=== PATIENT | female | born 1985 | race Caucasian/White ===

== ENCOUNTER 2017-08-22 14:22 | Emergency (ER) | payer MEDICARE ==
[~2017-08-22] VITALS: Ht 160 cm; Wt 80.3 kg
[2017-08-22 16:39] LABS: HEMATOCRIT 33.6 % (36.0-46.0); MCH 29.7 PG (29.0-34.0); MCV 89.8 FL (83-99); MEAN PLAT.VOLUME 9.3 uM^3 (9.5-12.4); PLATELET COUNT 295 K/uL (156-360); RBC DIS.WIDTH-CV 13.1 % (11.8-14.6); RBC DIS.WIDTH-SD 42.7 % (39-53); RED BLOOD COUNT 3.74 M/uL (3.80-5.20); WHITE BLOOD COUNT 8.7 K/uL (4.1-10.2)
[2017-08-22 16:49] LABS: CHLORIDE 105 mEq/L (99-109); POTASSIUM 3.5 mEq/L (3.7-5.4); SODIUM 139 mEq/L (136-147)
[2017-08-22 16:51] LABS: GLUCOSE 82 mg/dL (70-99)
[2017-08-22 16:53] LABS: ANION GAP 10 MEQ/L (2-14)
[2017-08-22 16:55] LABS: GFR ESTIMATE (CALCULATED) > 59 mL/min/
[2017-08-22 16:56] LABS: UREA NITROGEN (BUN) 9 mg/dL (9-23)
[2017-08-22 17:00] LABS: TROP-I INTERPRETATION NEGATIVE; TROPONIN-I < 0.01 ng/mL (0.0-0.30)
[2017-08-22 18:01] LABS: TROP-I INTERPRETATION NEGATIVE; TROPONIN-I < 0.01 ng/mL (0.0-0.30)
[2017-08-22 18:28] VITALS: BP 116/78
== END 2017-08-22 19:02 | disposition home or self-care (01) ==
LOC: EME 14:22
PROVIDERS: Emergency Medicine
DX: O26.893 Other specified pregnancy related conditions, third trimester (principal); R55 Syncope and collapse; R00.2 Palpitations; Z3A.31 31 weeks gestation of pregnancy
CPT/HCPCS: 71020; 80048; 83880; 84484; 85027; 93005; 99281; 99284; J7030

== ENCOUNTER 2017-11-29 12:15 | Outpatient (CLI) | payer MEDICARE ==
[~2017-11-29] VITALS: Ht 160 cm; Wt 96.8 kg
[2017-11-29] MEDS ORDERED: CELEXA20 MG PO (12:29)
[2017-11-29] MEDS ORDERED: IRON325 M1 PO (12:29)
[2017-11-29] MEDS ORDERED: ASPIRIN81 M2 PO (12:30)
[2017-11-29] MEDS ORDERED: FOLIC ACID0.8 M1 PO (12:30)
[2017-11-29 13:42] LABS: HEMATOCRIT 32.1 % (36.0-46.0); HEMOGLOBIN 10.5 G/DL (11.9-15.5); MCH 29.4 PG (29.0-34.0); MCHC 32.7 G/DL (30.0-36.0); MCV 89.9 FL (83-99); PLATELET COUNT 219 K/uL (156-360); RBC DIS.WIDTH-CV 15.2 % (11.8-14.6); RBC DIS.WIDTH-SD 50.7 % (39-53); RED BLOOD COUNT 3.57 M/uL (3.80-5.20); WHITE BLOOD COUNT 7.1 K/uL (4.1-10.2)
[2017-11-29 13:49] LABS: ALBUMIN 3.3 g/dL (3.2-4.8); CHLORIDE 108 mEq/L (99-109); POTASSIUM 3.6 mEq/L (3.7-5.4); SODIUM 138 mEq/L (136-147)
[2017-11-29 13:51] LABS: GLUCOSE 69 mg/dL (70-99)
[2017-11-29 13:53] LABS: TOTAL BILIRUBIN 0.2 mg/dL (0.0-1.0)
[2017-11-29 13:55] LABS: ALKALINE PHOSPHATASE 108 IU/L (3-129); CREATININE 0.6 mg/dL (0.6-1.3); GFR ESTIMATE (CALCULATED) > 59 mL/min/
[2017-11-29 13:56] LABS: UREA NITROGEN (BUN) 7 mg/dL (9-23)
[2017-11-29 13:57] LABS: AST (GOT) 18 IU/L (2-34)
[2017-11-29 13:58] LABS: ALT (GPT) 10 IU/L (3-49)
[2017-11-29 14:09] LABS: APPEARANCE SL.HAZY ((CLEAR)); BILIRUBIN NEGATIVE; BLOOD NEGATIVE; COLOR YELLOW ((YELLOW)); GLUCOSE (STRIP) NEGATIVE; KETONES 20; LEUKOCYTES NEGATIVE; NITRITE NEGATIVE; PROTEIN (STRIP) NEGATIVE; SPECIFIC GRAVITY 1.009 (1.000-1.030); UROBILINOGEN 0.2 MG/DL (0.2-1.0)
[2017-11-29 14:20] LABS: BACTERIA RARE /HPF; EPITHELIAL CELLS 1+ /HPF; HYALINE CASTS 0-5 /LPF; MUCUS TRACE /LPF; RED BLOOD CELLS 0-5 /HPF (0-5); UCUL ADDED? NO; WHITE BLOOD CELLS 0-5 /HPF (0-5)
[2017-11-29 15:14] VITALS: BP 122/71
== END 2017-11-29 16:30 | disposition home or self-care (01) ==
LOC: LDRP-OP 12:15 → EME 12:15 → EDSTATUS 15:09 → 2WEST 15:10
PROVIDERS: Nurse Practitioner Family
DX: O26.893 Other specified pregnancy related conditions, third trimester (principal); R55 Syncope and collapse; E16.2 Hypoglycemia, unspecified; D64.9 Anemia, unspecified; O99.013 Anemia complicating pregnancy, third trimester; O99.343 Other mental disorders complicating pregnancy, third trimester; F32.9 Major depressive disorder, single episode, unspecified; F41.0 Panic disorder [episodic paroxysmal anxiety]; Z3A.37 37 weeks gestation of pregnancy
CPT/HCPCS: 59025; 80053; 81003; 82948; 85027; 99281; 99284; G0378

== ENCOUNTER 2017-12-18 15:24 | Inpatient (IN) | payer MEDICARE ==
[~2017-12-18] VITALS: Ht 160 cm; Wt 89.0 kg
[2017-12-18] VITALS (18 sets, daily range): BP systolic 104–172; BP diastolic 55–86
[~2017-12-18 15:24] MED LIST: ASPIRIN81 M2 PO; CELEXA20 MG PO; FOLIC ACID0.8 M1 PO; IRON325 M1 PO
[2017-12-18 16:08] LABS: BASOPHIL (%) 0.5 % (0-1); EOSINOPHIL (%) 0.7 % (0-5); EOSINOPHIL COUNT 0.1 K/uL (0-0.3); HEMATOCRIT 37.6 % (36.0-46.0); HEMOGLOBIN 11.9 G/DL (11.9-15.5); IMMATURE GRANULOCYTE (%) 0.7 % (0.0-0.7); LYMPHOCYTE (%) 28.9 % (15-42); LYMPHOCYTE COUNT 2.3 K/uL (1.0-2.8); MCH 28.5 PG (29.0-34.0); MCHC 31.6 G/DL (30.0-36.0); MONOCYTE (%) 7.7 % (3-12); MONOCYTE COUNT 0.6 K/uL (0-0.8); NEUTROPHIL (%) 61.5 % (45-76); NEUTROPHIL COUNT 4.9 K/uL (1.8-6.4); PLATELET COUNT 217 K/uL (156-360); RBC DIS.WIDTH-CV 15.3 % (11.8-14.6); RBC DIS.WIDTH-SD 50.8 % (39-53); RED BLOOD COUNT 4.18 M/uL (3.80-5.20)
[2017-12-19] VITALS (9 sets, daily range): BP systolic 109–139; BP diastolic 66–83
[2017-12-19] MEDS ORDERED: IBUPROFEN800 MG PO (00:40)
[2017-12-20 04:55] VITALS: BP 132/82
[2017-12-20 07:20] VITALS: BP 132/71
[2017-12-20 14:34] VITALS: BP 129/75
== END 2017-12-20 17:40 | disposition home or self-care (01) | DRG 775 ==
LOC: LDRP-OP 15:24 → 2WEST 15:26 → LDRP-OP 02-23 13:24
PROVIDERS: Nurse Practitioner
DX: O69.1XX0 Labor and delivery complicated by cord around neck, with compression, not applicable or unspecified (principal); O43.123 Velamentous insertion of umbilical cord, third trimester; O99.824 Streptococcus B carrier state complicating childbirth; O99.344 Other mental disorders complicating childbirth; F32.9 Major depressive disorder, single episode, unspecified; O99.02 Anemia complicating childbirth; D64.9 Anemia, unspecified; Z3A.39 39 weeks gestation of pregnancy; Z37.0 Single live birth
CPT/HCPCS: 85025; C1755; J0290; J3010; J7050; J7120